=== PATIENT | male | born 1980 | race Caucasian/White ===

== ENCOUNTER 2019-02-27 10:52 | Observation (INO) ==
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
[2019-02-27 11:15] LABS: Hematocrit 43.9 % (42.0-52.0); Mean Corpuscular Hemoglobin 31.8 pg (27-31); Mean Corpuscular Hgb Conc 34.2 g/dl (32-36); Mean Platelet Volume 9.2 fl (8-11.3); Neutrophil # 13.4 K/mm3 (1.3-6.0); Neutrophil % 80.6 % (42-75.0); Platelet Count 335 K/mm3 (150-450); Red Blood Count 4.72 M/mm3 (4.7-6.0); Red Cell Distribution Width 13.1 % (11.5-14.0); White Blood Count 16.6 K/mm3 (4.0-10.5)
[2019-02-27 11:21] LABS: ALT 75 U/L (19-67); AST 118 U/L (0-48); Albumin * 3.4 gm/dl (3.4-5.0); Alkaline Phosphatase * 104 U/L (50-170); Anion Gap 12.4 mmol/L (6.8-13.8); BUN/Creatinine Ratio 21.8 (9.0-21.6); Bilirubin, Total 0.3 mg/dL (0.0-1.1); Blood Urea Nitrogen 22 mg/dL (6-23); Ca. Corrected For Albumin 8.8 mg/dL (8.4-10.2); Calcium * 8.6 mg/dL (7.9-10.9); Chloride 105 mmol/L (97-106); Glucose * 70 mg/dL (70-110); Potassium 3.4 mmol/L (3.4-4.6); Sodium 142 mmol/L (132-142); Total Protein 7.2 gm/dL (6.2-8.2)
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
[2019-02-27] MEDS ORDERED: DIPHTH,PERTUSS(ACELL),TET VAC 0.5 ML VIAL IM ONE (12:08)
[2019-02-27] MEDS ORDERED: MORPHINE SULFATE 2 MG/ML DISP.SYRIN IV ONE (12:34)
[2019-02-27] MEDS ORDERED: ACETAMINOPHEN 1,000 MG/100 ML BTL IV ONE (13:12)
[2019-02-27] MEDS ORDERED: ONDANSETRON HCL/PF 2 MG/ML VIAL IV PRN (13:48)
[2019-02-27] MEDS ORDERED: MORPHINE SULFATE 4 MG/ML SYRG IV PRN (13:48)
[2019-02-27] MEDS ORDERED: ACETAMINOPHEN 1,000 MG/100 ML BTL IV PRN (13:49)
[2019-02-27] MEDS ORDERED: MORPHINE SULFATE 2 MG/ML DISP.SYRIN IV PRN (14:17)
[2019-02-27] MEDS ORDERED: RINGER'S SOLUTION,LACTATED 1,000 ML IV PRN (15:42)
--- NOTE | 2019-02-27 16:53 | PN ---
Dictated Progress Note - Date and Time Seen: Date: 02/27/19 Time: 16:51 - Progress Note Narrative: Vital Signs - Last Taken Temp 36.9 C 02/27/19 15:35 Pulse 70 02/27/19 15:35 Resp 22 H 02/27/19 15:35 BP 113/82 02/27/19 15:35 Pulse Ox 97 02/27/19 15:35 Abnormal/Pending Laboratory Last 24 HRS 02/27/19 02/27/19 10:55 10:55 WBC 16.6 H MCH 31.8 H Immature Gran % (Auto) 0.70 H Immature Gran # (Auto) 0.12 H Neutrophils % 80.6 H Lymphocytes % 9.6 L Neutrophils # 13.4 H Monocytes # 1.3 H BUN/Creatinine Ratio 21.8 H AST 118 H ALT 75 H Vital signs remained normal. Much more alert. He states he is sore but his main complaint is pain in his right foot. He is hungry and wants a cigarette. He denies any abdominal pain or difficulty breathing. We will start p.o. pain medication, nicotine patch. Will start regular diet
[2019-02-27] MEDS: NICOTINE 21 MG PATC TD SCH (17:06)
[2019-02-27 17:11] LABS: Hematocrit 41.9 % (42.0-52.0)
[2019-02-27 17:12] LABS: Cocaine Ur Negative (NEGATIVE); Urine Barbiturate Negative (NEGATIVE); Urine Benzodiazepines Negative (NEGATIVE); Urine Opiates Positive (NEGATIVE); Urine PCP Negative (NEGATIVE); Urine THC Positive (NEGATIVE)
[2019-02-27] MEDS: oxyCODONE HCL/ACETAMINOPHEN 1 TAB TABLET PO PRN (17:31)
[2019-02-28] MEDS: oxyCODONE HCL/ACETAMINOPHEN 1 TAB TABLET PO PRN ×3 (02:13→18:56)
[2019-02-28 06:12] LABS: Hematocrit 42.6 % (42.0-52.0); Hemoglobin 14.3 gm/dL (13.5-18.0); Mean Cell Volume 93.4 fl (78-100); Mean Corpuscular Hemoglobin 31.4 pg (27-31); Mean Corpuscular Hgb Conc 33.6 g/dl (32-36); Platelet Count 267 K/mm3 (150-450); Red Blood Count 4.56 M/mm3 (4.7-6.0); Red Cell Distribution Width 13.3 % (11.5-14.0); White Blood Count 10.9 K/mm3 (4.0-10.5)
[2019-02-28 06:19] LABS: Total Cells Counted 100
[2019-02-28 06:43] LABS: Atypical (Reactive) Lymph 1 % (0-2); Eosinophil 2 % (0-3); Lymphocyte 23 % (20-51); Monocyte 12 % (0-9); Neutrophil 62 % (42-75); Neutrophil # 6.8 K/mm3 (1.3-6.0); Platelet Estimate Normal (NORMAL); RBC Morphology Normal (NORMAL)
--- NOTE | 2019-02-28 09:15 | PN ---
Subjective - Date and Time Seen Date: 02/28/19 Time: 09:05 Subjective Narrative: He has slept and was comfortable overnight. His vital signs have remained normal. He is dozing but awakens easily. He complains of left foot pain. Objective - Review of Systems Generalized/Overall Review: Denies: Chills, Fever EENTM: Reports: No Symptoms Reported Respiratory: Reports: Other - Pain in the ribs when he goes to get up. Denies: Cough, Shortness of Breath Cardiac: Denies: Palpitations Abdominal: Reports: No Symptoms Reported. Denies: Nausea, Vomiting, Abdominal Pain Genitourinary Symptoms: Reports: No Symptoms Reported Musculoskeletal Complaints: Reports: Other - Complains of pain in both feet left greater than right Neurological: Reports: No Symptoms Reported Skin: Reports: No Symptoms Reported - Vitals Vitals: Last Vital Signs Temp 36.6 C 02/28/19 06:00 Pulse 67 02/28/19 06:00 Resp 20 02/28/19 06:00 BP 111/62 02/28/19 06:00 Pulse Ox 99 02/28/19 06:00 - Abnormal Lab Findings Abnormal Lab Findings: Abnormal Lab Results 02/27/19 02/27/19 02/27/19 Range/Units 10:55 10:55 17:00 WBC 16.6 H (4.0-10.5) K/mm3 RBC (4.7-6.0) M/mm3 Hct (42.0-52.0) % MCH 31.8 H (27-31) pg Immature Gran % (Auto) 0.70 H (0.001-0.429) % Immature Gran # (Auto) 0.12 H (0.000-0.0310) K/mm3 Neutrophils % 80.6 H (42-75.0) % Lymphocytes % 9.6 L (20-51) % Monocytes % (Manual) (0-9) % Neutrophils # 13.4 H (1.3-6.0) K/mm3 Neutrophils # (Manual) (1.3-6.0) K/mm3 Monocytes # 1.3 H (0.0-1.0) k/mm3 Monocytes # (Manual) (0.0-1.0) k/mm3 BUN/Creatinine Ratio 21.8 H (9.0-21.6) AST 118 H (0-48) U/L ALT 75 H (19-67) U/L Urine Opiates Screen Positive H (NEGATIVE) Urine Amphetamine Positive H (NEGATIVE) Urine Marijuana (THC) Positive H (NEGATIVE) 02/27/19 02/28/19 Range/Units 17:10 06:09 WBC 10.9 H D (4.0-10.5) K/mm3 RBC 4.56 L (4.7-6.0) M/mm3 Hct 41.9 L (42.0-52.0) % MCH 31.4 H (27-31) pg Immature Gran % (Auto) (0.001-0.429) % Immature Gran # (Auto) (0.000-0.0310) K/mm3 Neutrophils % (42-75.0) % Lymphocytes % (20-51) % Monocytes % (Manual) 12 H (0-9) % Neutrophils # (1.3-6.0) K/mm3 Neutrophils # (Manual) 6.8 H (1.3-6.0) K/mm3 Monocytes # (0.0-1.0) k/mm3 Monocytes # (Manual) 1.3 H (0.0-1.0) k/mm3 BUN/Creatinine Ratio (9.0-21.6) AST (0-48) U/L ALT (19-67) U/L Urine Opiates Screen (NEGATIVE) Urine Amphetamine (NEGATIVE) Urine Marijuana (THC) (NEGATIVE) - Exam Exam Narrative: His eyes are closed but he awakens easily. He states he ate breakfast with no problem. He complains his left foot hurts when he gets up to go to the bathroom. He denies abdominal pain. He states his ribs are little sore when he goes to get up. Constitutional: Present: Oriented x3, No distress ENT Exam: Present: normal ENT inspection Neck: Present: full range of motion, normal inspection Respiratory: Present: no respiratory distress Cardiovascular/Chest: Present: regular rate, rhythm Abdomen: Present: other - Denies pain or tenderness /Rectal: Present: Exam deferred Extremity: Present: normal range of motion, other - He has bruising over the dorsum of the left forefoot but no pain on movement of the ankle or toes. 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 His SaO2 has remained normal and he has evidenced no respiratory problems. He is not complaining of back pain or hip pain per se he does have some muscular discomfort in the upper thighs. His main complaint is from the bruising on the left forefoot. Will ask Dr. Xiong to see the patient make a recommendation regarding that. The splenic laceration suggested on CT is asymptomatic in that his hemoglobin has remained stable and actually increased overnight. He has no abdominal pain, nausea, or vomiting. - Problems/Diagnosis (1) Multiple fractures of rib involving four or more ribs Problem: Acute (2) Fracture of spinous process of lumbar vertebra Problem: Acute Qualifiers: Encounter type: initial encounter Fracture type: closed Qualified Code(s): S32.009A - Unspecified fracture of unspecified lumbar vertebra, initial encounter for closed fracture (3) Pulmonary contusion Problem: Acute Qualifiers: Encounter type: initial encounter Laterality: bilateral Qualified Code(s): S27.322A - Contusion of lung, bilateral, initial encounter (4) Splenic laceration Problem: Acute Qualifiers: Encounter type: initial encounter Qualified Code(s): S36.039A - Unspecified laceration of spleen, initial encounter (5) Traumatic hematoma of left foot Problem: Acute
--- NOTE | 2019-02-28 15:49 | DS ---
(1) Multiple fractures of rib involving four or more ribs Problem: Acute (2) Fracture of spinous process of lumbar vertebra Problem: Acute Qualifiers: Encounter type: initial encounter Fracture type: closed Qualified Code(s): S32.009A - Unspecified fracture of unspecified lumbar vertebra, initial encounter for closed fracture (3) Pulmonary contusion Problem: Acute Qualifiers: Encounter type: initial encounter Laterality: bilateral Qualified Code(s): S27.322A - Contusion of lung, bilateral, initial encounter (4) Splenic laceration Problem: Acute Qualifiers: Encounter type: initial encounter Qualified Code(s): S36.039A - Unspecified laceration of spleen, initial encounter (5) Traumatic hematoma of left foot Problem: Acute Date of Discharge:: 02/28/19 Description of Stay: He was placed in observation bed due to suspicion for possible splenic injury and need for pain control for rib fractures. His vital signs remained stable and his hemoglobin did not decrease appreciably. He had minimal complaints referable to his ribs and oxygenation remained normal. His main complaint was pain in the left forefoot. He was able to tolerate regular diet. Dedicated films of the left foot were obtained at 03 20, however there was no official reading yet at 1556. There appeared to be no gross fracture to my review of the films. He will be discharged home with instructions not to engage in vigorous activity. He was given a prescription for Percocet 5/325 mg #30. Has phone numbers to [facility] for questions or concerns. A return office appointment will be made for 7 to 10 days. Procedures Performed: none Results and Findings: Lab Pending Results 02/27/19 10:55: WBC 16.6 H, RBC 4.72, Hgb 15.0, Hct 43.9, MCV 93.0, MCH 31.8 H, MCHC 34.2, RDW 13.1, Plt Count 335, MPV 9.2, Immature Gran % (Auto) 0.70 H, Immature Gran # (Auto) 0.12 H, Neutrophils % 80.6 H, Lymphocytes % 9.6 L, Monocytes % 8.1, Eosinophils % 0.6, Basophils % 0.4, Nucleated RBC % 0.0, Neutrophils # 13.4 H, Lymphocytes # 1.60, Monocytes # 1.3 H, Eosinophils # 0.1, Absolute Basophils 0.1 02/27/19 10:55: Sodium 142, Plasma Sodium 142, Potassium 3.4, Chloride 105, Carbon Dioxide 28.0, Anion Gap 12.4, BUN 22, Creatinine 1.01, Est GFR (Non-Af Amer) 89, BUN/Creatinine Ratio 21.8 H, Random Glucose 70, Calcium 8.6, Calcium Adj for Albumin 8.8, Total Bilirubin 0.3, AST 118 H, ALT 75 H, Alkaline Phosphatase 104, Total Protein 7.2, Albumin 3.4, Ethyl Alcohol Less than 3.0 02/27/19 10:55: Blood Type A Positive, Antibody Screen Negative 02/27/19 17:00: Urine Opiates Screen Positive H, Barbiturate Screen Negative, Ur Phencyclidine Scrn Negative, Urine Amphetamine Positive H, U Benzodiazepines Scrn Negative, Urine Cocaine Screen Negative, Urine Marijuana (THC) Positive H 02/27/19 17:10: Hgb 14.0, Hct 41.9 L 02/28/19 06:09: WBC 10.9 H D, RBC 4.56 L, Hgb 14.3, Hct 42.6, MCV 93.4, MCH 31.4 H, MCHC 33.6, RDW 13.3, Plt Count 267, MPV 9.0, Neutrophils % (Manual) 62, Lymphocytes % (Manual) 23, Monocytes % (Manual) 12 H, Eosinophils % (Manual) 2, Neutrophils # (Manual) 6.8 H, Lymphocytes # (Manual) 2.5, Monocytes # (Manual) 1.3 H, Eosinophils # (Manual) 0.2, Atypic/Reactive Lymphs 1, Platelet Estimate Normal, RBC Morphology Normal Discharge Location: Home Disposition: Home self-care Condition: Stable Discharge Activity: Partial-Weight bearing Discharge Diet: General/regular food Problem Oriented Discharge Instructions to Patient/Family: Ankle Sprain, [id number], Rib Fracture, [id number] Additional Patient Instructions (free text): avoid vigorous physical activity or contact sports. Will need to call [phone] for a f/u apt in 7-10 days Prescriptions (Any new or edited meds): oxyCODONE HCL/ACETAMINOPHEN [Percocet 5 MG/325 MG] 1 tab PO Q4H PRN #30 tab PRN Reason: Pain Complete Home Medications List: Complete Home Medication List: oxyCODONE HCL/ACETAMINOPHEN [Percocet 5 MG/325 MG] 1 tab PO Q4H PRN #30 tab 02/28/19
[2019-02-28 16:43] VITALS: BP 117/63
[2019-02-28] MEDS: NICOTINE 21 MG PATC TD SCH (17:43)
== END 2019-02-28 19:00 | disposition home or self-care (01) ==
LOC: MS 10:52 → ER 10:52 → MS 14:00
PROVIDERS: ADMIT Surgery; ATTEND Surgery
DX: V89.2XXA Person injured in unspecified motor-vehicle accident, traffic, initial encounter; S27.322A Contusion of lung, bilateral, initial encounter; S32.009A Unspecified fracture of unspecified lumbar vertebra, initial encounter for closed fracture; S36.039A Unspecified laceration of spleen, initial encounter; S22.49XA Multiple fractures of ribs, unspecified side, initial encounter for closed fracture; S90.32XA Contusion of left foot, initial encounter
CPT/HCPCS: 36415; 70450; 71260; 72125; 72128; 72131; 73130; 73590; 73610; 73630; 74177; 80053; 80307; 80320; 85014; 85018; 85025; 86850; 90715; 93005; 96365; 96375; 99284; 99291; G0378; G0481; J0131; Q9967